=== PATIENT | female | born 1965 | race Caucasian/White ===

== ENCOUNTER → 2017-04-18 | Outpatient (CLI) | payer BC | END | disposition home or self-care (01) | LOC: CDC 11:16 | DX: Z01.810 Encounter for preprocedural cardiovascular examination (principal); M17.12 Unilateral primary osteoarthritis, left knee; I45.4 Nonspecific intraventricular block | CPT/HCPCS: 93000 ==

== ENCOUNTER 2017-06-24 06:48 | Day surgery (SDC) | payer OTHER ==
[~2017-06-24] VITALS: Ht 170.2 cm; Wt 87.1 kg
[~2017-06-24 06:48] MED LIST: IBUPROFEN400 MG PO; IRON325 M1 PO
[2017-06-24 07:22] VITALS: BP 144/78
[2017-06-24 14:45] VITALS: BP 128/61
[2017-06-24 16:45] VITALS: BP 107/54
[2017-06-24 17:10] VITALS: BP 102/50
== END 2017-06-24 17:25 | disposition home or self-care (01) ==
LOC: SDC 06:48
PROC: 0SRD0J9 Replacement of Left Knee Joint with Synthetic Substitute, Cemented, Open Approach (ICD-10-PCS; principal; 2017-06-24)
DX: M17.12 Unilateral primary osteoarthritis, left knee (principal); Z90.5 Acquired absence of kidney; Z90.710 Acquired absence of both cervix and uterus
CPT/HCPCS: 88304; C1713; J0131; J0690; J1170; J1885; J2250; J2405; J2795; J3475; J7050; J7120